=== PATIENT | female | born 1960 | race Caucasian/White ===

== ENCOUNTER 2017-01-23 15:00 | Emergency (ER) | payer MEDICARE ==
[2017-01-23 15:48] LABS: HEMOGLOBIN ISTAT 13.3 gm/dL; POTASSIUM ISTAT 3.5 mmol/L (3.5-5.0)
--- NOTE | 2017-01-23 15:59 | ED.ADGEN ---
Past History Past Medical History: Hypotension, Other Past Surgical History: Cholecystectomy, Hysterectomy, Other Alcohol Use: None Drug Use: None Adult General HPI HPI Patient is a 56-year-old female presents emergency department complaining of a one-day history of "chest pain" which she describes as a "quivering" feeling in her chest. She reports she has a long history of coronary vasospasm which usually improves when she takes her Norvasc. She did take a dose of Norvasc this morning but did not get complete resolution. She denies any tom pain, nausea, vomiting, diaphoresis. She does report some exertional dyspnea that is not new. Review of Systems Review of Systems Constitutional: Denies fever or chills [] Eyes: Denies change in visual acuity, redness, or eye pain [] HENT: Denies nasal congestion or sore throat [] Respiratory: Denies cough or shortness of breath [] Cardiovascular: No additional information not addressed in HPI [] GI: Denies abdominal pain, nausea, vomiting, bloody stools or diarrhea [] : Denies dysuria or hematuria [] Musculoskeletal: Denies back pain or joint pain [] Integument: Denies rash or skin lesions [] Neurologic: Denies headache, focal weakness or sensory changes [] Endocrine: Denies polyuria or polydipsia [] Current Medications Current Medications Current Medications Medications (Trade) Dose Ordered Sig/Madhav Start Time Stop Time Status Last Admin Dose Admin Nitroglycerin (Nitrostat) 0.4 mg 1X ONCE 01/23/17 16:15 01/23/17 16:16 DC 01/23/17 16:09 0.4 MG Allergies Allergies Allergies Coded Allergies Type Severity Reaction Last Updated Verified ciprofloxacin Allergy Severe Rash 02/18/16 Yes sulfamethoxazole Allergy Severe Diarrhea 02/18/16 Yes trimethoprim Allergy Severe Diarrhea 02/18/16 Yes Physical Exam Physical Exam Constitutional: Well developed, well nourished, no acute distress, non-toxic appearance. [] HENT: Normocephalic, atraumatic, bilateral external ears normal, oropharynx moist, no oral exudates, nose normal. [] Eyes: PERRLA, EOMI, conjunctiva normal, no discharge. [] Neck: Normal range of motion, no tenderness, supple, no stridor. [] Cardiovascular:Heart rate regular rhythm, no murmur [] Lungs & Thorax: Bilateral breath sounds clear to auscultation [] Abdomen: Bowel sounds normal, soft, no tenderness, no masses, no pulsatile masses. [] Skin: Warm, dry, no erythema, no rash. [] Back: No tenderness, no CVA tenderness. [] Extremities: No tenderness, no cyanosis, no clubbing, ROM intact, no edema. [] Neurologic: Alert and oriented X 3, normal motor function, normal sensory function, no focal deficits noted. [] Psychologic: Affect normal, judgement normal, mood normal. [] Current Patient Data Vital Signs Vital Signs Date Time Temp Pulse Resp B/P Pulse Ox O2 Delivery O2 Flow Rate FiO2 01/23/17 16:09 80 129/69 01/23/17 15:05 98.2 20 96 Room Air Lab Results Laboratory Tests Test 01/23/17 15:23 01/23/17 15:25 POC Hemoglobin 13.3gm/dL POC Hematocrit 39% POC Sodium 139mmol/L (135-145) POC Potassium 3.5mmol/L (3.5-5.0) POC Chloride 100mmol/L (98-110) POC Total CO2 26mmol/L (23-32) Anion Gap 17mmol/L (6-14) H POC Blood Urea Nitrogen 9mg/dL (8-26) POC Creatinine 0.7mg/dL (0.5-1.4) Glucose Level 103mg/dL (60-99) H POC Ionized Calcium (Chantal) 1.13mmol/L (1.13-1.32) POC Troponin I 0.00ng/ml (<0.08) EKG EKG EKG interpreted by me, sinus tachycardia, 111 beats for minute, no ST segment elevation, normal axis. [] Radiology/Procedures Radiology/Procedures [] Course & Med Decision Making Course & Med Decision Making Pertinent Labs and Imaging studies reviewed. (See chart for details) Reassuring workup here in emergency department. She was given sublingual nitroglycerin with adequate results. Patient states that she will follow up with PCP tomorrow and return to the ED sooner if she develops new or worsening symptoms. [] Final Impression Final Impression Chest pain [] Problems: Dragon Disclaimer Dragon Disclaimer This electronic medical record was generated, in whole or in part, using a voice recognition dictation system. STEPHAN GRAVES MD Jan 23, 2017 15:58
[2017-01-23] MEDS ORDERED: NITROGLYCERIN SUBLINGUAL 0.4 MG BOTTLE OF 25. SL ONE (16:15)
[2017-01-23] MEDS ORDERED: NITR0.4T6 SL (16:22)
[2017-01-23 16:33] VITALS: BP 119/59
--- NOTE | 2017-01-23 16:39 | EKG ---
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
== END 2017-01-23 16:47 | disposition home or self-care (01) ==
LOC: ER 15:00
DX: R07.9 Chest pain, unspecified (principal); I10 Essential (primary) hypertension; Z88.1 Allergy status to other antibiotic agents
CPT/HCPCS: 80047; 84484; 93005; 99283-25

== ENCOUNTER → 2017-02-27 | Outpatient (CLI) | payer MEDICARE ==
[~2017-02-27] MED LIST: NITR0.4T6 SL
--- NOTE | 2017-02-27 17:03 | CARD ---
APPROVED REPORT EXAM: Two-dimensional and M-mode echocardiogram with Doppler and color Doppler. Other Information Quality : Average Rhythm : NSR INDICATION Arrhythmia V-TACH 2D DIMENSIONS RVDd2.8 (2.9-3.5cm)Left Atrium(2D)3.0 (1.6-4.0cm) IVSd1.0 (0.7-1.1cm)Aortic Root(2D)2.6 (2.0-3.7cm) LVDd4.3 (3.9-5.9cm)LVOT Diameter2.0 (1.8-2.4cm) PWd1.0 (0.7-1.1cm)LVDs2.8 (2.5-4.0cm) FS (%) 35.7 %SV55.2 ml LVEF(%)65.5 (>50%) Aortic Valve AoV Peak Bora.121.5cm/sAoV VTI26.7cm AO Peak GR.5.9mmHgLVOT Peak Bora.92.4cm/s LVOT VTI 20.25cmAO Mean GR.3mmHg ROGERS (VMAX)2.74nh8STK (VTI)2.29cm2 Mitral Valve MV E Tdtouazy91.8cm/sMV E Peak Gr.3mmHg MV DECEL [id number] A Lmastguz27.2cm/s MV E Mean Gr.1mmHgMV IFF13bn E/A Ratio0.9MV A Vezujmpc172ic MVA (PHT)4.90cm2 Tricuspid Valve TR P. Frshlvmj328xa/sTR Peak Gr.11mmHg Pulmonary Vein S1 Lhmqrxlp77.2cm/sD2 Bjnvnrrt91.0cm/s LEFT VENTRICLE The left ventricle is normal size. There is normal left ventricular wall thickness. Left ventricle sy stolic function is normal. The Ejection Fraction is 60-65%. There is normal LV segmental wall motion. The left ventricular diastolic function and filling is normal for age. There is no ventricular septa l defect visualized. RIGHT VENTRICLE The right ventricle is normal size. The right ventricular systolic function is normal. ATRIA The left atrium size is normal. The right atrium size is normal. The interatrial septum is intact wit h no evidence for an atrial septal defect or patent foramen ovale as noted on 2-D or Doppler imaging. AORTIC VALVE The aortic valve is normal in structure and function. The aortic valve is trileaflet. Doppler and Col or Flow revealed no significant aortic regurgitation. There is no significant aortic valvular stenosi s. MITRAL VALVE The mitral valve is normal in structure and function. There is no mitral valve stenosis. Doppler and Color Flow revealed no mitral valve regurgitation noted. TRICUSPID VALVE The tricuspid valve is normal in structure and function. Doppler and Color Flow revealed no tricuspid valve regurgitation noted. Unable to estimate PA pressure. There is no tricuspid valve stenosis. PULMONIC VALVE The pulmonic valve is not well visualized. Doppler and Color Flow revealed no pulmonic valvular regur gitation. There is no pulmonic valvular stenosis. GREAT VESSELS The aortic root is normal in size. Normal pulmonary venous flow (Doppler). The IVC is normal in size and collapses >50% with inspiration. PERICARDIAL EFFUSION There is no evidence of significant pericardial effusion. Critical Notification Critical Value: No <Conclusion> Left ventricle systolic function is normal. The Ejection Fraction is 60-65%. There is normal LV segmental wall motion.
== END | disposition home or self-care (01) ==
LOC: ECHO 09:30
PROVIDERS: ATTEND Internal Medicine Cardiovascular Disease
DX: I47.2 Ventricular tachycardia (principal); I49.9 Cardiac arrhythmia, unspecified; R00.2 Palpitations
CPT/HCPCS: 93306

== ENCOUNTER → 2017-02-28 | Outpatient (CLI) | payer OTHER ==
--- NOTE | 2017-02-28 16:44 | RAD ---
Indication dizziness. Signs and symptoms suggesting CVA. Grayscale color Doppler and spectral imaging was performed. Examination was targeted to the carotid bifurcations. On the left there is no significant plaquing or intimal thickening. The color Doppler images do not suggest significant turbulence. The common carotid waveform and velocities are normal. The internal carotid waveform and velocities are also normal. The external carotid has a normal appearance. The vertebral is patent and demonstrates normal directional flow. On the right there is no significant plaquing. The color Doppler images do not suggest significant turbulence. The common carotid waveform and velocities are normal. The internal carotid waveform and velocities are also normal. The external carotid has a normal appearance. The vertebral is patent and demonstrates normal directional flow. IMPRESSION: No evidence of hemodynamically significant stenosis at either carotid bifurcation. Stenosis 0-50%. Note: Stenosis calculations for CT, MR and conventional angiography are based upon determination of the distal ICA diameter in accordance with the NASCET methodology. Stenosis calculations for doppler studies are derived from validated velocity criteria which are known to correlate with NASCET methodology of determining stenosis.
== END | disposition home or self-care (01) ==
LOC: US 09:39
PROVIDERS: ATTEND Family Medicine
DX: R42 Dizziness and giddiness (principal)
CPT/HCPCS: 93880

== ENCOUNTER → 2018-10-24 | Day surgery (SDC) | payer OTHER ==
[~2018-10-24] MED LIST changes: +AMLO5TAB4 PO; +BUPIVAC MPF-EPI 0.5%-1:200000 30 ML VIAL. ONE; +BUPR300T3 PO; +FURO-69 PO; +LEVO75TA5 PO; +NITR0.4T22 SL; -NITR0.4T6 SL; +OMEP20CA9 PO; +POTA10TA10 PO
[2018-10-24 12:54] VITALS: BP 145/75
--- NOTE | 2018-10-24 15:11 | PDOC ---
BRIEF OPERATIVE NOTE Date: Oct 24, 2018 Pre-Op Diagnosis skin lesions, chest, left forearm Post-Op Diagnosis same Procedure Performed excision Surgeon Imtiaz Anesthesia Type: Local Specimens Obtained right chest specimen 2.5x2x1 cm lesion 1x1x0.5 cm left forearm specimen 2x1x0.5 cm lesion 0.5x0.5 cm Additional Remarks Wk # [id number] CARMELITA MARTIN MD Oct 24, 2018 15:10
--- NOTE | 2018-10-24 15:22 | OP ---
DATE OF SURGERY: 10/24/2018 PREOPERATIVE DIAGNOSIS: Skin lesion, right chest and skin lesion, left forearm. POSTOPERATIVE DIAGNOSIS: Skin lesion, right chest and skin lesion, left forearm. PROCEDURE: Excision of same. SURGEON: Carmelita Martin MD ANESTHESIA: Local. SPECIMEN: 1. Right chest specimen 2.5 x 2 x 1 cm, lesion 1 x 1 x 0.5 cm. 2. Left forearm specimen 2 x 1 x 0.5 cm, lesion 0.5 x 0.5 cm. DESCRIPTION OF PROCEDURE: The patient's right chest and left forearm were prepped and draped in usual sterile fashion. An elliptical incision was outlined with a marking pen, infiltrated with local anesthetic, incised and removed intact. Hemostasis with cautery. Wound closed with interrupted 3-0 Vicryl in the subcutaneous tissue. 4-0 Monocryl and Steri-Strips for the skin. Sterile dressings applied. The patient was dismissed having tolerated the procedure well. CARMELITA MARTIN MD DR: LAKESHA/nts JOB#: [id number] / [id number]
== END | disposition home or self-care (01) ==
LOC: SURG 11:05
PROVIDERS: ATTEND Surgery
DX: C44.529 Squamous cell carcinoma of skin of other part of trunk (principal); L57.0 Actinic keratosis; I10 Essential (primary) hypertension; E78.5 Hyperlipidemia, unspecified; E03.9 Hypothyroidism, unspecified; Z90.710 Acquired absence of both cervix and uterus; Z98.51 Tubal ligation status; Z79.899 Other long term (current) drug therapy; Z87.891 Personal history of nicotine dependence; Z88.1 Allergy status to other antibiotic agents; Z88.8 Allergy status to other drugs, medicaments and biological substances
CPT/HCPCS: 11400; 11402; 11601; 88305; J3490

== ENCOUNTER → 2020-01-29 | Outpatient (CLI) | payer BC ==
[2018-10-24 12:54] VITALS: BP 145/75
[~2020-01-29] MED LIST changes: -BUPIVAC MPF-EPI 0.5%-1:200000 30 ML VIAL. ONE; +OMEP20CA16 PO; -OMEP20CA9 PO
--- NOTE | 2020-01-29 10:01 | RAD ---
EXAM: Thyroid Ultrasound INDICATION: Neck mass ? TECHNIQUE: Real-time ultrasound of the thyroid was performed with permanent freeze-frame documentation. COMPARISON: None. ? FINDINGS: THYROID: Thyroid gland is small and mildly diffusely hypoechoic in echogenicity. ? Right Lobe: 2.7 x 1.2 x 1.1 cm. ? Left Lobe: 2.6 x 0.7 x 0.8 cm. ? Isthmus: 0.1 cm. ?? No thyroid nodule. ? OTHER: Patient indicated the lump is observed when the patient swallows close to the manubrial notch and sonographic imaging of this area reveals no discrete mass although the cortical bone of the manubrium was difficult to image satisfactorily on ultrasound. ? IMPRESSION: ? 1. No soft tissue mass in the area of reported lump in the region of the sternal notch. Further imaging evaluation if clinically warranted could be pursued with a soft tissue neck CT with IV contrast with marking the area of clinical concern using a skin marker for correlation purposes. 2. Slight morphologic atrophy of the thyroid gland. Correlate with thyroid function tests. Electronically signed by: Kayleen Barreto MD (01/29/2020 9:58 AM) [id number]
== END | disposition home or self-care (01) ==
LOC: US 08:57
PROVIDERS: ATTEND Nurse Practitioner Family
DX: E03.4 Atrophy of thyroid (acquired) (principal)
CPT/HCPCS: 76536

== ENCOUNTER 2020-05-23 22:52 | Observation (INO) | payer BC ==
[~2020-05-23] VITALS: Ht 162.6 cm; Wt 71.5 kg
[2020-05-23] MEDS ORDERED: IV RINGERS SOLUTION,LACTATED 1,000 ML IV SCH (23:45)
[2020-05-23 23:55] LABS: BASO % 0 % (0-3); EOS # 0.4 x10^3/uL (0.0-0.7); EOS % 4 % (0-3); HEMATOCRIT 36.6 % (36.0-47.0); HEMOGLOBIN 12.4 g/dL (12.0-15.5); LYMPH # 3.6 x10^3/uL (1.0-4.8); LYMPH % 35 % (24-48); MEAN CORPUSCULAR HEMOGLOBIN 34 pg (25-35); MEAN CORPUSCULAR HGB CONC 34 g/dL (31-37); MEAN CORPUSCULAR VOLUME 100 fL (79-100); MONO # 0.6 x10^3/uL (0.0-1.1); MONO % 6 % (0-9); NEUT # 5.6 x10^3uL (1.8-7.7); NEUT % 55 % (31-73); PLATELET COUNT 213 x10^3/uL (140-400); RED BLOOD COUNT 3.67 x10^6/uL (3.50-5.40); RED CELL DISTRIBUTION WIDTH 12.7 % (11.5-14.5); WHITE BLOOD COUNT 10.2 x10^3/uL (4.0-11.0)
[2020-05-23 23:56] LABS: CALCIUM 8.9 mg/dL (8.5-10.1); GFR 57.1; POTASSIUM 3.4 mmol/L (3.5-5.1)
[2020-05-24 00:09] LABS: ALBUMIN 3.7 g/dL (3.4-5.0); DIRECT BILIRUBIN 0.1 mg/dL (0.0-0.2); MAGNESIUM 2.1 mg/dL (1.8-2.4); TOTAL BILIRUBIN 0.2 mg/dL (0.2-1.0); TOTAL PROTEIN 6.5 g/dL (6.4-8.2)
--- NOTE | 2020-05-24 00:21 | EKG ---
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
--- NOTE | 2020-05-24 00:31 | PHYS DOC ---
Past History Past Medical History: Angina, CAD, High Cholesterol, Heart Disease, Hypothyroid Past Surgical History: Hysterectomy, Tonsillectomy, Other Additional Past Surgical Histo: skin surgeries for tumor removal, bilat shoulder sugery, bladder sling Smoking: Cigarettes Alcohol Use: None Drug Use: None General Adult EDM: Chief Complaint: CHEST PAIN HPI: HPI: "..I got this chest pain that woke me up.. about 9:00 however it did not get better by 1030. I took nitro and it seemed to that seem to help relieve it.. but I got a cardiac hx.. so I thought I should get checked out.. I ve been under a lot of stress ..and have started smoking. ..again.." ,,, Patient is a 59 year old female who presents with above hx and complaints of chest discomfort. Discomfort was in central chest. No radiation. Did have some associated nausea. Pt. has long hx of chest pain caused by coronary vasospasm. Patient denies any history of trauma. Patient denies any change in her meds. Patient denies any sick travel outside [facility] recently. Patient denies any immunosuppression. Patient has had previous work-up for her chest pain. Has follow-up with Dr. resendez at [facility]. Last heart cath was approximately 10 years ago. Previous chest pain episodes diagnosis of coronary artery spasms as a cause .. Patient does now smoke. Patient does have a history of elevated lipids and blood sugars. There is a strong family history of cardiac disorder and blood pressure issues. Multiple family members have had MIs in their 40s and 50s. Review of Systems: Review of Systems: Constitutional: Denies fever or chills Eyes: Denies change in visual acuity HENT: Denies nasal congestion or sore throat Respiratory: Denies cough or shortness of breath Cardiovascular: Complains of chest pain GI: Denies abdominal pain, nausea, vomiting, bloody stools or diarrhea : Denies dysuria Musculoskeletal: Denies back pain or joint pain Integument: Denies rash Neurologic: Denies headache, focal weakness or sensory changes Endocrine: Denies polyuria or polydipsia Lymphatic: Denies swollen glands Psychiatric: Denies depression or anxiety Heart Score: HEART Score for Chest Pain: HEART Score for Chest Pain Response (Comments) Value History Slighlty/Non-Suspicious 0 ECG Nonspecific Repolarizatio 1 Age >45 - < 65 1 Risk Factors 1 or 2 Risk Factors 1 Troponin < Normal Limit 0 Total 3 Risk Factors: Risk Factors: DM, Current or recent (<one month) smoker, HTN, HLP, family history of CAD, obesity. Risk Scores: Score 0 - 3: 2.5% MACE over next 6 weeks - Discharge Home Score 4 - 6: 20.3% MACE over next 6 weeks - Admit for Clinical Observation Score 7 - 10: 72.7% MACE over next 6 weeks - Early Invasive Strategies Family History: Family History: Multiple family members with cardiac issues started in 40s and 50s more on her father's side. Current Medications: Current Meds: Current Medications Medications (Trade) Dose Ordered Sig/Madhav Start Time Stop Time Status Last Admin Dose Admin Lactated Ringer's 1,000 ml @ 100 mls/hr Q10H 05/23/20 23:45 05/24/20 09:44 Allergies: Allergies: Allergies Coded Allergies Type Severity Reaction Last Updated Verified ciprofloxacin Allergy Severe Rash 10/24/18 Yes sulfamethoxazole Allergy Severe Diarrhea 10/24/18 Yes trimethoprim Allergy Severe Diarrhea 10/24/18 Yes atorvastatin Allergy Unknown 10/24/18 Yes Physical Exam: PE: Constitutional: Moderate acute distress, non-toxic appearance. [] HENT: Normocephalic, atraumatic, bilateral external ears normal, oropharynx moist, no oral exudates, nose normal. [] Eyes: PERRLA, EOMI, conjunctiva normal, no discharge. [] Neck: Normal range of motion, no tenderness, supple, no stridor. [] Cardiovascular: Bradycardia heart rate regular rhythm, no murmur [] Lungs & Thorax: Bilateral breath sounds clear to auscultation [] Abdomen: Bowel sounds normal, soft, no tenderness, no masses, no pulsatile masses. Obese. Old surgery scars. Skin: Warm, dry, no erythema, no rash. [] Back: No tenderness, no CVA tenderness. [] Extremities: No tenderness, no cyanosis, no clubbing, ROM intact, no edema. [] No cording appreciated Neurologic: Alert and oriented X 3, normal motor function, normal sensory function, no focal deficits noted. [] Psychologic: Affect anxious , judgement normal, mood normal. [] Current Patient Data: Labs: Laboratory Tests Test 05/23/20 23:05 White Blood Count 10.2 x10^3/uL (4.0-11.0) Red Blood Count 3.67 x10^6/uL (3.50-5.40) Hemoglobin 12.4 g/dL (12.0-15.5) Hematocrit 36.6 % (36.0-47.0) Mean Corpuscular Volume 100 fL (79-100) Mean Corpuscular Hemoglobin 34 pg (25-35) Mean Corpuscular Hemoglobin Concent 34 g/dL (31-37) Red Cell Distribution Width 12.7 % (11.5-14.5) Platelet Count 213 x10^3/uL (140-400) Neutrophils (%) (Auto) 55 % (31-73) Lymphocytes (%) (Auto) 35 % (24-48) Monocytes (%) (Auto) 6 % (0-9) Eosinophils (%) (Auto) 4 % (0-3) H Basophils (%) (Auto) 0 % (0-3) Neutrophils # (Auto) 5.6 x10^3uL (1.8-7.7) Lymphocytes # (Auto) 3.6 x10^3/uL (1.0-4.8) Monocytes # (Auto) 0.6 x10^3/uL (0.0-1.1) Eosinophils # (Auto) 0.4 x10^3/uL (0.0-0.7) Basophils # (Auto) 0.0 x10^3/uL (0.0-0.2) Prothrombin Time 10.1 SEC (9.4-11.4) Prothrombin Time INR 1.0 (0.9-1.1) Activated Partial Thromboplast Time 26 SEC (23-33) D-Dimer (Yuridia) 0.25 mg/L (0.00-0.50) Sodium Level 144 mmol/L (136-145) Potassium Level 3.4 mmol/L (3.5-5.1) L Chloride Level 107 mmol/L (98-107) Carbon Dioxide Level 30 mmol/L (21-32) Anion Gap 7 (6-14) Blood Urea Nitrogen 19 mg/dL (7-20) Creatinine 1.0 mg/dL (0.6-1.0) Estimated GFR (Cockcroft-Gault) 57.1 Glucose Level 149 mg/dL (70-99) H Calcium Level 8.9 mg/dL (8.5-10.1) Magnesium Level 2.1 mg/dL (1.8-2.4) Total Bilirubin 0.2 mg/dL (0.2-1.0) Direct Bilirubin 0.1 mg/dL (0.0-0.2) Aspartate Amino Transferase (AST) 13 U/L (15-37) L Alanine Aminotransferase (ALT) 18 U/L (14-59) Alkaline Phosphatase 69 U/L (46-116) Creatine Kinase 69 U/L (26-192) Troponin I Quantitative < 0.017 ng/mL (0-0.055) GG-Sgr-T-Type Natriuretic Peptide 89 pg/mL (0-124) Total Protein 6.5 g/dL (6.4-8.2) Albumin 3.7 g/dL (3.4-5.0) Lipase 153 U/L (73-393) Vital Signs: Vital Signs Date Time Temp Pulse Resp B/P (MAP) Pulse Ox O2 Delivery O2 Flow Rate FiO2 05/23/20 22:55 98.5 55 18 128/57 (80) 98 Room Air EKG: EKG: My interpretation EKG shows a sinus bradycardia 54 bpm. No findings of acute STEMI with contralateral changes. [] Radiology/Procedures: Radiology/Procedures: [][place] [address] IMAGING REPORT Signed PATIENT: GIBSON JOHNSTON ACCOUNT: [id number] : 1960 LOCATION: [facility] AGE: 59 SEX: F EXAM STATUS: ADM IN ORD. PHYSICIAN: MI MARTINI MD REASON: cp PROCEDURE: PORTABLE CHEST 1V AP portable chest radiograph 05/24/2020 Clinical History: Chest pain. An AP erect portable digital radiograph of the chest was obtained. Comparison study is dated 03/05/2013. The cardiac and mediastinal silhouettes are within normal limits in size and configuration. No acute pulmonary infiltrate is seen. No pleural effusion or pneumothorax is noted. The osseous structures are grossly intact. Impression: No acute abnormality is seen. Electronically signed by: Colin Bateman MD (05/24/2020 1:28 AM) [id number] DICTATED AND SIGNED BY: COLIN BATEMAN MD DATE: 05/24/20 0128 CC: MI MARTINI MD; STAN ARRINGTON MD; BELIA ROBLES MD ~ Course & Med Decision Making: Course & Med Decision Making Pertinent Labs and Imaging studies reviewed. (See chart for details) Discussed presentation, testing and treatment plan with Dr. Arrington. Will admit with cardiology consult. Impression: 1. Chest pain 2. Hypertension 3. History of elevated lipids 4. History of coronary artery disease 5. History of coronary artery spasms 6. History of tobacco abuse 7. DM 149 [] Dragon Disclaimer: Dragon Disclaimer: This electronic medical record was generated, in whole or in part, using a voice recognition dictation system. Departure Departure: Disposition: 01 HOME/RESIDENCE PRIOR TO ADM Condition: STABLE Referrals: BELIA ROBLES MD (PCP) Justification of Admission: Justification of Admission: Justification of Admission Dx: Yes Angina: [place] Worsening of Sym Dragon Disclaimer This chart was dictated in whole or in part using Voice Recognition software in a busy, high-work load, and often noisy Emergency Department environment. It may contain unintended and wholly unrecognized errors or omissions. Dragon Disclaimer This chart was dictated in whole or in part using Voice Recognition software in a busy, high-work load, and often noisy Emergency Department environment. It may contain unintended and wholly unrecognized errors or omissions. Dragon Disclaimer This chart was dictated in whole or in part using Voice Recognition software in a busy, high-work load, and often noisy Emergency Department environment. It may contain unintended and wholly unrecognized errors or omissions. MI MARTINI MD May 24, 2020 00:31
[2020-05-24] MEDS ORDERED: ONDANSETRON PF 4 MG/2 ML VIAL. IVP PRN (00:45)
[2020-05-24] MEDS ORDERED: ACETAMINOPHEN 325 MG TABLET PO PRN (00:45)
[2020-05-24] MEDS ORDERED: ENOXAPARIN ** NOTE DOSE ** SYRINGE SQ ONE (01:00)
--- NOTE | 2020-05-24 01:31 | RAD ---
AP portable chest radiograph 05/24/2020 Clinical History: Chest pain. An AP erect portable digital radiograph of the chest was obtained. Comparison study is dated 03/05/2013. The cardiac and mediastinal silhouettes are within normal limits in size and configuration. No acute pulmonary infiltrate is seen. No pleural effusion or pneumothorax is noted. The osseous structures are grossly intact. Impression: No acute abnormality is seen. Electronically signed by: Colin Bateman MD (05/24/2020 1:28 AM) [id number]
[2020-05-24 01:50] VITALS: BP 100/64
--- NOTE | 2020-05-24 01:51 | NUR ---
The patient, GIBSON JOHNSTON, 59 y/o, F admitted by STAN ARRINGTON MD, was given written information regarding hospital policies, unit procedures and contact persons. Valuables were checked and documented. Pts vitals were taken and stable. pt being monitored via heart monitor. pt is A&Ox4 also cooperative with admission. pt has no complaints of chest pain at this time. will continue to monitor.
[2020-05-24] MEDS ORDERED: MELA5TAB20 PO (02:32)
[2020-05-24] MEDS ORDERED: ESCITALOPRAM OX10 MG PO (02:32)
[2020-05-24] MEDS ORDERED: ROPI0.25 PO (02:32)
[2020-05-24] MEDS ORDERED: LORA10TA68 PO (02:32)
[2020-05-24 05:36] VITALS: BP 125/71
[2020-05-24] MEDS ORDERED: POTASSIUM CHLORIDE 20 MEQ TABLET.ER. PO ONE (07:15)
--- NOTE | 2020-05-24 07:50 | PDOC2 ---
CARDIAC CONSULT DATE OF CONSULT Date Of Consult DATE: 05/24/20 TIME: 07:45 REASON FOR CONSULT Reason for Consult Chest pain REFERRING PHYSICIAN Referring Physician Dr. Bowden SOURCE Source: Chart review, Patient HPI History of Present Illness This is a 59 yo female who presented secondary to chest pain. Patient reports she woke up in the middle of the night with episode of nausea/vomiting. [place] pressure in her central chest. Was slightly short of breath. No dizziness, diaphoresis, palpitations. Pain improved with SL nitro and has not returned. Patient reports she is very physically active at home and denies any chest pain with exertional activities. Does report occasional pressure when she is standing and leans forwards. Reports this resolved upon standing upright. PAST MEDICAL HISTORY Cardiovascular: hyperipidemia Heme/Onc: Cancer (breast CA) Psych: Anxiety, Depression Endocrine: Hypothyroidism PAST SURGICAL HISTORY Past Surgical History: Cholecystectomy, Tonsillectomy, Hysterectomy, Other (bladder sling ) FAMILY HISTORY Family History: Cancer, High Cholestrol SOCIAL HISTORY Smoke: <1 pack per day ALCOHOL: none Drugs: None Lives: with Family CURRENT MEDICATIONS Current Medications Current Medications Lactated Ringer's 1,000 ml @ 100 mls/hr Q10H IV Last administered on 05/23/20at 23:45; Start 05/23/20 at 23:45; Stop 05/24/20 at 09:44 Enoxaparin Sodium (Lovenox 60mg Syringe) 60 mg 1X ONCE SQ Last administered on 05/24/20at 03:32; Start 05/24/20 at 01:00; Stop 05/24/20 at 02:49; Status DC Ondansetron HCl (Zofran) 4 mg PRN Q4HRS PRN IVP NAUSEA/VOMITING; Start 05/24/20 at 00:45; Stop 05/25/20 at 00:44 Acetaminophen (Tylenol) 650 mg PRN Q4HRS PRN PO FEVER > 100.3'F; Start 05/24/20 at 00:45; Stop 05/25/20 at 00:44 Albuterol/ Ipratropium (Duoneb) 3 ml RTQID NEB ; Start 05/24/20 at 08:00; Stop 05/25/20 at 07:59 Enoxaparin Sodium (Lovenox 60mg Syringe) 60 mg BID SQ ; Start 7/13/20 at 09:00; Status UNV Aspirin (Aspirin Chewable) 81 mg DAILYWBKFT PO ; Start 05/24/20 at 08:00 Potassium Chloride (Klor-Con) 40 meq 1X ONCE PO ; Start 05/24/20 at 07:15; Stop 05/24/20 at 07:16; Status DC Active Scripts Active Reported Requip (Ropinirole Hcl) 0.25 Mg Tablet 1 Mg PO HS LAST DOSE GIVEN: DATE: TIME: NEXT DOSE DUE: DATE: TIME: Claritin (Loratadine) 10 Mg Tablet 10 Mg PO DAILY LAST DOSE GIVEN: DATE: TIME: NEXT DOSE DUE: DATE: TIME: Escitalopram Oxalate 10 Mg Tablet 10 Mg PO DAILY LAST DOSE GIVEN: DATE: TIME: NEXT DOSE DUE: DATE: TIME: Melatonin 5 Mg Tab.rapdis 5 Mg PO HS LAST DOSE GIVEN: DATE: TIME: NEXT DOSE DUE: DATE: TIME: Levothyroxine Sodium 75 Mcg Tablet 75 Mcg PO DAILY LAST DOSE GIVEN: DATE: TIME: NEXT DOSE DUE: DATE: TIME: Omeprazole 20 Mg Capsule.dr 20 Mg PO DAILY LAST DOSE GIVEN: DATE: TIME: NEXT DOSE DUE: DATE: TIME: Norvasc (Amlodipine Besylate) 5 Mg Tablet 5 Mg PO DAILY LAST DOSE GIVEN: DATE: TIME: NEXT DOSE DUE: DATE: TIME: ALLERGIES Allergies: Coded Allergies: ciprofloxacin (Verified Allergy, Severe, Rash, 10/24/18) UTI/YEAST INFECTIONS sulfamethoxazole (Verified Allergy, Severe, Diarrhea, 10/24/18) trimethoprim (Verified Allergy, Severe, Diarrhea, 10/24/18) atorvastatin (Verified Allergy, Unknown, 10/24/18) ROS Review of Systems 14 point ROS conducted with pertinent positives noted above in HPI PHYSICAL EXAM General: Alert, Oriented X3, Cooperative, No acute distress HEENT: Atraumatic, Mucous membr. moist/pink Lungs: Clear to auscultation, Normal air movement Heart: Regular rate, No murmurs Abdomen: Soft, No tenderness Extremities: No edema, Normal pulses Skin: No breakdown Neuro: Normal speech, Sensation intact Psych/Mental Status: Mental status NL, Mood NL MUSCULOSKELETAL: Osteoarthritic changes both hands VITALS Vital Signs Vital Signs Date Time Temp Pulse Resp B/P (MAP) Pulse Ox O2 Delivery O2 Flow Rate FiO2 05/24/20 05:36 98.0 58 16 125/71 (89) 96 Room Air LABS LABS Laboratory Tests Test 7/12/20 23:05 05/24/20 06:08 White Blood Count 10.2 x10^3/uL (4.0-11.0) Red Blood Count 3.67 x10^6/uL (3.50-5.40) Hemoglobin 12.4 g/dL (12.0-15.5) Hematocrit 36.6 % (36.0-47.0) Mean Corpuscular Volume 100 fL (79-100) Mean Corpuscular Hemoglobin 34 pg (25-35) Mean Corpuscular Hemoglobin Concent 34 g/dL (31-37) Red Cell Distribution Width 12.7 % (11.5-14.5) Platelet Count 213 x10^3/uL (140-400) Neutrophils (%) (Auto) 55 % (31-73) Lymphocytes (%) (Auto) 35 % (24-48) Monocytes (%) (Auto) 6 % (0-9) Eosinophils (%) (Auto) 4 % (0-3) Basophils (%) (Auto) 0 % (0-3) Neutrophils # (Auto) 5.6 x10^3uL (1.8-7.7) Lymphocytes # (Auto) 3.6 x10^3/uL (1.0-4.8) Monocytes # (Auto) 0.6 x10^3/uL (0.0-1.1) Eosinophils # (Auto) 0.4 x10^3/uL (0.0-0.7) Basophils # (Auto) 0.0 x10^3/uL (0.0-0.2) Prothrombin Time 10.1 SEC (9.4-11.4) Prothromb Time International Ratio 1.0 (0.9-1.1) Activated Partial Thromboplast Time 26 SEC (23-33) D-Dimer (Yuridia) 0.25 mg/L (0.00-0.50) Sodium Level 144 mmol/L (136-145) Potassium Level 3.4 mmol/L (3.5-5.1) Chloride Level 107 mmol/L (98-107) Carbon Dioxide Level 30 mmol/L (21-32) Anion Gap 7 (6-14) Blood Urea Nitrogen 19 mg/dL (7-20) Creatinine 1.0 mg/dL (0.6-1.0) Estimated GFR (Cockcroft-Gault) 57.1 Glucose Level 149 mg/dL (70-99) Calcium Level 8.9 mg/dL (8.5-10.1) Magnesium Level 2.1 mg/dL (1.8-2.4) Total Bilirubin 0.2 mg/dL (0.2-1.0) Direct Bilirubin 0.1 mg/dL (0.0-0.2) Aspartate Amino Transf (AST/SGOT) 13 U/L (15-37) Alanine Aminotransferase (ALT/SGPT) 18 U/L (14-59) Alkaline Phosphatase 69 U/L (46-116) Creatine Kinase 69 U/L (26-192) Troponin I Quantitative < 0.017 ng/mL (0-0.055) < 0.017 ng/mL (0-0.055) TN-Iot-I-Type Natriuretic Peptide 89 pg/mL (0-124) Total Protein 6.5 g/dL (6.4-8.2) Albumin 3.7 g/dL (3.4-5.0) Lipase 153 U/L (73-393) ECHOCARDIOGRAM Echocardiogram <Conclusion> Left ventricle systolic function is normal. The Ejection Fraction is 60-65%. There is normal LV segmental wall motion. DATE: 02/27/17 1703 <Conclusion> The left ventricle is normal size. The left ventricular systolic function is normal and the ejection fraction is within normal range. The Ejection Fraction is 55-60%. The interatrial septum is intact with no evidence for an atrial septal defect or patent foramen ovale as noted on 2-D or Doppler imaging. There is no significant aortic valvular stenosis. Doppler and Color Flow revealed no significant aortic regurgitation. Doppler and Color Flow revealed trace mitral valve regurgitation noted. Doppler and Color Flow revealed no tricuspid valve regurgitation noted. DATE: 01/28/19 1159 ASSESSMENT/PLAN Assessment/Plan 1. Chest pain, atypical; Trop negative x2. 2. Sinus bradycardia; lowest 48. No pauses 3. Hyperlipidemia; allergy to statins 4. GERD 5. Hypothyroidism; on replacement 6. Tobaccoism; discussed/encouraged cessation 7. Anxiety, depression Recommendations Trend trop Lipids TSH Resume ASA Will arrange outpatient stress test and follow up in our office with Dr. Mendosa Supportive care MARIALUISA VALLEJO APRN May 24, 2020 07:50
[2020-05-24] MEDS ORDERED: IPRATRPIUM/ALBUTEROL 0.5/2.5MG 3 ML NEBU. NEB SCH (08:00)
[2020-05-24] MEDS ORDERED: ASPIRIN CHEWABLE 81 MG TABLET. PO SCH (08:00)
[2020-05-24] MEDS ORDERED: LORazepam 1 MG TABLET PO ONE (09:00)
[2020-05-24] MEDS ORDERED: ENOXAPARIN ** NOTE DOSE ** SYRINGE SQ SCH (09:00)
[2020-05-24 09:37] LABS: BACTERIA,URINE FEW /HPF (0-FEW); BILIRUBIN,URINE NEG (NEG); CLARITY,URINE CLEAR; COLOR,URINE YELLOW; GLUCOSE,URINE NEG (NEG); NITRITE,URINE NEG (NEG); SQUAMOUS EPITHELIAL CELL,UR FEW /LPF; UROBILINOGEN,URINE 0.2 mg/dL (0.2 mg/dL)
--- NOTE | 2020-05-24 10:40 | HP ---
ADMIT DATE: 05/24/2020 ATTENDING PHYSICIAN: Dr. Arrington. CHIEF COMPLAINT: Chest pain. HISTORY OF PRESENT ILLNESS: The patient is a 59-year-old female admitted through the ED with new onset of chest pain. It woke her from sleep. She took 1 nitro, it seemed to help a bit. She is under a lot of stress, undergoing recent divorce. She also started smoking again. In the ED, she was evaluated. Chest x-ray, EKG showed no acute changes. The first set of cardiac enzymes were negative. She has a history of coronary artery disease. Last heart catheterization was 10 years ago, but she had a negative stress evaluation 1 year ago. She was admitted for further treatment and evaluation of serial enzymes. PAST MEDICAL HISTORY: Significant for coronary artery disease; hyperlipidemia; hypothyroidism, on replacement; angina. She has had a previous hysterectomy and tonsillectomy. CURRENT MEDICATIONS: Reviewed prior to admission. She was taking amlodipine, Lexapro, Synthroid, loratadine, melatonin, omeprazole, and Requip. ALLERGIES: She has allergies to LIPITOR, CIPRO, SULFA DRUGS and TRIMETHOPRIM. Exact reaction is unclear. SOCIAL HISTORY: She is a smoker, a pack of cigarettes daily. She had some recent alcohol use. She is undergoing a lot of stress, according to the patient. She denies any recreational drug use. FAMILY HISTORY: Significant for ovarian cancer to mom and a family history of colon cancer. REVIEW OF SYSTEMS: Significant for increased stress, chest pain, noncardiac. She drinks quite a bit of caffeine. There is no recent travel, fevers, chills, nausea, vomiting, hematemesis. All other systems reviewed and determined to be negative. PHYSICAL EXAMINATION: GENERAL: When I saw her, this is a pleasant, middle-aged female. INITIAL VITAL SIGNS: Showed a blood pressure of 125/71, pulse is 58 and regular. She was afebrile. HEENT: Head is without trauma. Pupils are reactive. Sclerae nonicteric. Oropharynx clear. NECK: Supple, no bruits. LUNGS: Otherwise clear. CARDIOVASCULAR: Showed regular heart tones. No gallops. Peripheral pulses are palpable and full. ABDOMEN: Soft, scaphoid, nontender, no organomegaly. Bowel sounds are hypoactive. EXTREMITIES: Show no cyanosis or edema. NEUROLOGIC: Focally intact. SKIN: Warm and dry. PERTINENT LABORATORY STUDIES: Electrolytes, BUN and creatinine were unremarkable. Hemoglobin maintained at 12.6 g/dL with white count of 10,200. ASSESSMENT: 1. A 59-year-old female with atypical chest pain. 2. Known history of coronary artery disease. Last cardiac evaluation was nonischemic 1 year ago. 3. Hypertension. 4. Hypothyroidism, on replacement. 5. Depression with anxiety. PLAN: 1. Observation status. 2. Serial cardiac enzymes. 3. Cardiology evaluation in the morning. STAN ARRINGTON MD DR: AYAAN/robin JOB#: [id number] / [id number]
--- NOTE | 2020-05-24 10:50 | NUR ---
Patient was discharged home with self care. Patients IV is removed and tele monitor removed. Patient is stable at time of discharge. Patient is escorted off of unit accompanied by staff.
--- NOTE | 2020-05-24 13:15 | DS ---
DATE OF DISCHARGE: 05/24/2020 ATTENDING PHYSICIAN: Dr. Arrington. FINAL DISCHARGE DIAGNOSES: 1. Atypical chest pain, noncardiac, coronary ischemia ruled out. 2. Known coronary artery disease. 3. Hyperlipidemia. 4. Hypothyroidism, on replacement. 5. Angina. 6. Depression with anxiety. HISTORY OF PRESENT ILLNESS: This is a 59-year-old female with a known history of coronary artery disease, admitted through the ED with chest pain, woke her up at sleep, nonexertional. She is also drinking a lot of caffeine and alcohol and this may contribute to it. She was admitted for observation and Cardiology evaluation. PHYSICAL EXAMINATION: Please see my dictated note. PERTINENT LABORATORY AND X-RAY STUDIES: Hemoglobin maintained at 12.4 g/dL with a white count of 10,200. Electrolytes, BUN and creatinine, blood sugar, liver functions all within normal range. Three sets of cardiac enzymes were negative for coronary ischemia. Magnesium level is 1.9. EKG is nondiagnostic. Chest x-ray on admission showed no acute identifiable infiltrates or decompensation. COURSE IN THE HOSPITAL: The patient was admitted for observation. Three sets of serial enzymes were negative for coronary ischemia. She was seen by a psychological anthropologist ____ morning with a plan for outpatient evaluation. Lungs were clear. Vital signs are stable. Enzymes are negative. She is discharged home. There are no changes on her medication. She should continue her amlodipine, Lexapro, Synthroid, loratadine, melatonin, omeprazole, and Requip, dose is unchanged. I recommended to her and strong encouragement to quit smoking altogether and to avoid further alcohol use and to cut back her caffeine intake whether or not she will follow this and remains to be seen. The patient was then discharged from our hospital in stable condition with explicit instructions and followup care. STAN ARRINGTON MD DR: AYAAN/robin JOB#: [id number] / [id number]
[2020-05-24 14:45] LABS: THYROID STIM HORMONE (TSH) 3.575 uIU/mL (0.358-3.740)
== END 2020-05-24 10:52 | disposition home or self-care (01) ==
LOC: ER 22:52 → 1 SOUTH 05-24 00:30
PROVIDERS: ADMIT Hospitalist; ATTEND Hospitalist
DX: R07.89 Other chest pain (principal); I25.119 Atherosclerotic heart disease of native coronary artery with unspecified angina pectoris; E03.9 Hypothyroidism, unspecified; F41.8 Other specified anxiety disorders; E78.5 Hyperlipidemia, unspecified; F17.210 Nicotine dependence, cigarettes, uncomplicated; Z79.899 Other long term (current) drug therapy
CPT/HCPCS: 36415; 71045; 80048; 80061; 80076; 81001; 82550; 83690; 83735; 83880; 84443; 84484; 85025; 85379; 85610; 85730; 93005; 96372; 99285; G0378; G0379; J1650; J7120

== ENCOUNTER → 2020-06-25 | Outpatient (CLI) | payer BC ==
[~2020-06-25] MED LIST changes: +ESCITALOPRAM OX10 MG PO; +LORA10TA68 PO; +MELA5TAB20 PO; +ROPI0.25 PO
--- NOTE | 2020-06-25 08:51 | RAD ---
Ultrasound evaluation, right groin 06/25/2020 INDICATION: Right groin pain COMPARISON STUDY: None Discussion: Focused ultrasound evaluation of the right inguinal region was performed. Static images are submitted to PACS. There is a hypoechoic focus in the right groin, with posterior acoustic shadowing, measuring approximately 1.4 cm x 1.7 cm extending posteriorly into the peritoneum. Evaluation of the continuity of the perineum is limited. This could represent a small hernia containing gas filled bowel. Other masses cannot be excluded. No internal vascularity is suggested on color Doppler ultrasound. IMPRESSION: 1.4 x 1.7 cm hypoechoic shadowing structure in the right groin appears to extend into the peritoneum. This could represent a hernia with gas-filled bowel. Other masses are not excluded. CT imaging recommended. Electronically signed by: Daniel Salgado MD (06/25/2020 8:48 AM) [id number]
== END | disposition home or self-care (01) ==
LOC: US 07:49
PROVIDERS: ATTEND Surgery
DX: R10.31 Right lower quadrant pain (principal)
CPT/HCPCS: 76882

== ENCOUNTER 2021-04-19 23:36 | Emergency (ER) | payer BC ==
[2021-04-20] MEDS ORDERED: ROPI0.25 PO (13:58)
[2021-04-20] MEDS ORDERED: ASPI-630 PO (13:58)
[2021-04-22] MEDS ORDERED: IPRA3AMP29 NEB (10:47)
[2021-04-22] MEDS ORDERED: AZIT250T6 PO (10:47)
[2021-04-22] MEDS ORDERED: PANT40TA6 PO (10:47)
[2021-04-22] MEDS ORDERED: PRED-220 PO (10:47)
== END 2021-04-20 00:03 | disposition left against medical advice (07) ==
LOC: ER 23:36
DX: R06.02 Shortness of breath (principal); Z53.21 Procedure and treatment not carried out due to patient leaving prior to being seen by health care provider

== ENCOUNTER 2021-04-20 12:25 | Inpatient (IN) | payer BC ==
[~2021-04-20] VITALS: Ht 162.6 cm; Wt 69.0 kg
[2021-04-20 12:55] VITALS: BP 117/64
[2021-04-20] MEDS ORDERED: ZOLPIDEM 5 MG TABLET. PO PRN (13:30)
[2021-04-20] MEDS: IPRATRPIUM/ALBUTEROL 0.5/2.5MG 3 ML NEBU. NEB SCH ×3 (13:30→21:15)
[2021-04-20] MEDS ORDERED: MAG HYDROX/AL HYDROX/SIMETH 30 ML ORAL.SUSP PO PRN (13:30)
[2021-04-20] MEDS ORDERED: ACETAMINOPHEN 500 MG TABLET PO PRN (13:30)
[2021-04-20 13:51] LABS: BASO % 0 % (0-3); EOS # 0.2 x10^3/uL (0.0-0.7); EOS % 3 % (0-3); HEMATOCRIT 38.9 % (36.0-47.0); HEMOGLOBIN 13.1 g/dL (12.0-15.5); LYMPH # 1.8 x10^3/uL (1.0-4.8); LYMPH % 31 % (24-48); MEAN CORPUSCULAR HEMOGLOBIN 33 pg (25-35); MEAN CORPUSCULAR HGB CONC 34 g/dL (31-37); MEAN CORPUSCULAR VOLUME 99 fL (79-100); MONO # 0.6 x10^3/uL (0.0-1.1); MONO % 9 % (0-9); NEUT # 3.4 x10^3uL (1.8-7.7); NEUT % 57 % (31-73); PLATELET COUNT 178 x10^3/uL (140-400); RED BLOOD COUNT 3.92 x10^6/uL (3.50-5.40); RED CELL DISTRIBUTION WIDTH 13.3 % (11.5-14.5)
[2021-04-20] MEDS ORDERED: ROPI0.25 PO (13:58)
[2021-04-20] MEDS ORDERED: ASPI-630 PO (13:58)
[2021-04-20] MEDS ORDERED: AZITHROMYCIN 250 MG TABLET. PO ONE (14:00)
[2021-04-20 14:07] LABS: ALBUMIN 3.8 g/dL (3.4-5.0); ALBUMIN/GLOBULIN RATIO 1.2 (1.0-1.7); CALCIUM 8.7 mg/dL (8.5-10.1); CREATININE 0.7 mg/dL (0.6-1.0); GFR 85.9; POTASSIUM 3.9 mmol/L (3.5-5.1); TOTAL BILIRUBIN 0.4 mg/dL (0.2-1.0); TOTAL PROTEIN 7.1 g/dL (6.4-8.2)
[2021-04-20] MEDS: PROMETH/CODEINE 6.25/10MG 5 ML SYRUP. PO PRN ×2 (14:56→20:39)
--- NOTE | 2021-04-20 14:56 | RAD ---
EXAM: CT OF THE CHEST WITHOUT CONTRAST. HISTORY: Shortness of breath. TECHNIQUE: Computed tomography of the chest was performed without intravenous contrast. One or more o f the following individualized dose reduction techniques were utilized for this examination: 1. Automated exposure control. 2. Adjustment of the mA and/or kV according to patient size. 3. Use of iterative reconstruction technique. COMPARISON: None. FINDINGS: Images of the upper abdomen reveal no acute abnormality. Bone windows reveal no suspicious lesions. There are no pathologically enlarged mediastinal or axillary lymph nodes. There is no pleural or ron cardial effusion. The heart is not enlarged. Lung windows reveal multiple small regions of groundglass opacity scattered throughout all lobes. The largest in the right upper lobe on image 36 spans approximately 2.9 x 2.0 cm. There is mild bronchia l wall thickening without bronchiectasis. A calcified granuloma is noted in the left lower lobe. IMPRESSION: 1. Scattered small groundglass opacities and bronchial wall thickening most likely reflect an atypica l pneumonic process. These could be followed in 3 months to confirm resolution if the diagnosis remai ns unclear. Electronically signed by: Helen Alvarado MD (04/20/2021 2:54 PM) [id number]
--- NOTE | 2021-04-20 15:40 | NUR ---
Admission Note Patient direct admit from 's office. Patient has had increased shortness of breath with excretion, increase cough, and unable to clear secretions. Supplemental oxygen of 2liters applied upon admission. Patient alert & orientated x4, PRN cough medicine w/codeine administered which has helped with pain/cough/shortness of breath.
[2021-04-20 15:45] VITALS: BP 145/73
[2021-04-20 19:31] VITALS: BP 129/66
[2021-04-20] MEDS: rOPINIRole 1 MG TABLET. PO SCH (20:39)
[2021-04-20] MEDS: methylPREDNISolone SOD SUCC PF 40 MG/ML VIAL. IV SCH (20:39)
[2021-04-20] MEDS ORDERED: MELATONIN 3 MG TABLET PO SCH (21:00)
--- NOTE | 2021-04-20 22:44 | EKG ---
[address] [address] Test Date: 2021-04-20 Test Time: 22:05:45 Pat Name: GIBSON JOHNSTON Department: Room: 117 A Gender: F Hedis Manager: : 1960 Requested By: ERICK MARTINEZ Order Number: [id number] Reading MD: Measurements Intervals [place] Rate: 62 P: 0 MO: 170 QRS: 54 QRSD: 82 T: 38 QT: 442 QTc: 451 Interpretive Statements SINUS RHYTHM LOW LIMB LEAD VOLTAGE NO SPECIFIC ECG ABNORMALITIES RI6.01 No previous ECG available for comparison
[2021-04-20 23:36] VITALS: BP 104/63
[2021-04-21] MEDS: IPRATRPIUM/ALBUTEROL 0.5/2.5MG 3 ML NEBU. NEB SCH ×4 (05:14→20:00)
[2021-04-21 05:54] VITALS: BP 110/63
[2021-04-21] MEDS: PANTOPRAZOLE 40 MG TABLET. PO SCH (09:08)
[2021-04-21] MEDS: AZITHROMYCIN 250 MG TABLET. PO SCH (09:08)
[2021-04-21] MEDS: LEVOTHYROXINE 75 MCG TABLET PO SCH (09:08)
[2021-04-21] MEDS: CITALOPRAM 20 MG TABLET. PO SCH (09:09)
[2021-04-21] MEDS: amLODIPine BESYLATE 5 MG TABLET PO SCH (09:09)
[2021-04-21] MEDS: methylPREDNISolone SOD SUCC PF 40 MG/ML VIAL. IV SCH ×2 (09:09→20:51)
[2021-04-21] MEDS: CETIRIZINE HCL 10 MG TABLET PO SCH (09:09)
[2021-04-21 11:06] VITALS: BP 124/59
[2021-04-21 15:46] VITALS: BP 126/53
[2021-04-21] MEDS: PROMETH/CODEINE 6.25/10MG 5 ML SYRUP. PO PRN (18:22)
[2021-04-21 19:32] VITALS: BP 117/65
[2021-04-21] MEDS: rOPINIRole 1 MG TABLET. PO SCH (20:51)
[2021-04-21] MEDS ORDERED: rOPINIRole 0.25 MG TABLET. PO SCH (21:00)
[2021-04-21] MEDS ORDERED: ASPIRIN CHEWABLE 81 MG TABLET. PO SCH (21:00)
--- NOTE | 2021-04-21 22:43 | PN ---
SUBJECTIVE: A 60-year-old female with acute respiratory failure and acute exacerbation of COPD. The patient is resting fairly comfortably, receiving steroids and aggressive pulmonary toilet making some improvement. OBJECTIVE: VITAL SIGNS: Blood pressure 126/53, respiratory rate 16, pulse 70, afebrile. GENERAL: The patient is alert and oriented. LUNGS: Diminished, some expiratory wheezes, particularly on the left side, but markedly improved from where they were just the day before. She is feeling better. Oxygen saturation is just 90% on room air. We will continue to monitor that, aggressive pulmonary toilet. She is on Rocephin and Zithromax as well as aggressive pulmonary toilet. IMPRESSION: Pneumonitis, acute respiratory failure secondary to pneumonitis, history of emphysema. PLAN: Continue with IV antibiotic therapy, aggressive pulmonary toilet. RADHA/JORDON DR: RADHA/robin TID: [id number]
[2021-04-21 22:59] VITALS: BP 120/62
[2021-04-22] MEDS: IPRATRPIUM/ALBUTEROL 0.5/2.5MG 3 ML NEBU. NEB SCH ×2 (05:24→09:20)
[2021-04-22 05:46] VITALS: BP 128/74
[2021-04-22] MEDS: AZITHROMYCIN 250 MG TABLET. PO SCH (08:01)
[2021-04-22] MEDS: methylPREDNISolone SOD SUCC PF 40 MG/ML VIAL. IV SCH (08:01)
[2021-04-22] MEDS: CITALOPRAM 20 MG TABLET. PO SCH (08:01)
[2021-04-22] MEDS: amLODIPine BESYLATE 5 MG TABLET PO SCH (08:02)
[2021-04-22] MEDS: PANTOPRAZOLE 40 MG TABLET. PO SCH (08:02)
[2021-04-22] MEDS: CETIRIZINE HCL 10 MG TABLET PO SCH (08:02)
[2021-04-22] MEDS: LEVOTHYROXINE 75 MCG TABLET PO SCH (08:08)
[2021-04-22] MEDS: PROMETH/CODEINE 6.25/10MG 5 ML SYRUP. PO PRN (08:08)
[2021-04-22 10:00] VITALS: BP 132/66
[2021-04-22] MEDS ORDERED: PANT40TA6 PO (10:47)
[2021-04-22] MEDS ORDERED: AZIT250T6 PO (10:47)
[2021-04-22] MEDS ORDERED: IPRA3AMP29 NEB (10:47)
[2021-04-22] MEDS ORDERED: PRED-220 PO (10:47)
--- NOTE | 2021-04-22 11:21 | NUR ---
PATIENT IS DISCHARGED HOME, DISCHARGED INSTRUCTIONS REVIEWED, PATIENT VERBALIZED UNDERSTANDING. PATIENT LEFT ROOM VIA AMBUL ACCOMP BY STAFF, PATIENT DRIVING SELF HOME.
== END 2021-04-22 11:20 | disposition home or self-care (01) | DRG 193 ==
LOC: 1 SOUTH 12:25
PROVIDERS: ADMIT Family Medicine; ATTEND Family Medicine
DX: J18.9 Pneumonia, unspecified organism (principal); J96.00 Acute respiratory failure, unspecified whether with hypoxia or hypercapnia; J43.9 Emphysema, unspecified
CPT/HCPCS: 36415; 71250; 80053; 85025; 86140; 93005; 94640; 94760; J0696; J2920